=== PATIENT | female | born 1930 | race Caucasian/White ===

== ENCOUNTER 2020-03-15 21:56 | Emergency (ER) | payer MEDICARE, MEDICAID ==
[~2020-03-15] VITALS: Ht 144.8 cm; Wt 54.4 kg
--- NOTE | 2020-03-15 22:10 | NUR ---
ED Nurse Note: walked in to ed accompanied by family c/o cut on left arm that occured 1 wk ago and is suspected of being infected. reports 8/10 burning pain. vss, nad, aaox4, ambulatory, ermd at bedside.
[2020-03-15 22:13] VITALS: BP 194/83
[2020-03-15] MEDS ORDERED: Neosporin Oint Ud Pkt TOPIC ONE (22:15)
[2020-03-15] MEDS ORDERED: MUPIROCIN22 GM TOPIC (22:20)
--- NOTE | 2020-03-15 22:20 | Emergency Room Report ---
History of Present Illness General Chief Complaint: Upper Extremity Injury Source: Patient, Family Member Present Illness HPI This an 89-year-old female who is right-hand dominant. She has a history of high blood pressure. She presents with chief complaint of laceration to her left forearm. Injury occur a week ago. She bumped it against something. There was a big cut there. She did not come in to see the doctor. Now there is some swelling and pain in that area. Daughter said there is some clear yellowish drainage. No fever chills. Worse with palpation. Better with rest. Denies any other complaint. Her daughter set that her blood pressure go up when she is nervous especially when she goes to the doctor. She is compliant with her blood pressure medication. Denies any headache, chest pain, shortness of breath or any other complaint. Allergies: Coded Allergies: PENICILLINS (Verified Allergy, Unknown, 03/15/20) COVID-19 Screening Contact w/high risk pt: No Experienced COVID-19 symptoms?: No COVID-19 Testing performed CHILD MONITOR: No Patient History Past Medical History: see triage record, old chart reviewed, HTN Past Surgical History: none Pertinent Family History: none Social History: Denies: smoking Last Menstrual Period: NA Now: No : 1 Para: 1 Immunizations: other Reviewed Nursing Documentation: PMH: Agreed; PSxH: Agreed Nursing Documentation-PMH Hx Cardiac Problems: Yes - BIPASS Hx Hypertension: Yes Hx Asthma: Yes Review of Systems Eye: Denies: eye pain, blurred vision ENT: Denies: ear pain, nose congestion, throat swelling Respiratory: Denies: cough, shortness of breath Cardiovascular: Denies: chest pain, palpitations Gastrointestinal: Denies: abdominal pain, diarrhea, nausea, vomiting Musculoskeletal: Denies: back pain, joint pain Skin: Denies: rash Neurological: Denies: headache, numbness Endocrine: Denies: increased thirst, increased urine Hematologic/Lymphatic: Denies: easy bruising All Other Systems: negative except mentioned in HPI Physical Exam Vital Signs Date Time Temp Pulse Resp B/P (MAP) Pulse Ox O2 Delivery O2 Flow Rate FiO2 03/15/20 21:59 98.1 67 17 194/83 (120) 93 Room Air Vitals with high blood pressure Sp02 EP Interpretation: reviewed, normal General Appearance: well appearing, no apparent distress, alert Head: normocephalic, atraumatic Eyes: bilateral eye PERRL, bilateral eye EOMI ENT: hearing grossly normal, normal pharynx Neck: full range of motion, supple, no meningismus Respiratory: chest non-tender, lungs clear, normal breath sounds Cardiovascular #1: regular rate, rhythm, no murmur Gastrointestinal: normal bowel sounds, non tender, no mass, no organomegaly, no bruit, non-distended Musculoskeletal: back normal, normal range of motion, gait/station normal, other - Left forearm: There is a 2 cm laceration. It is old with granulation tissue. There is some mild edema. There is no purulent discharge. Slight redness at the edges. Psychiatric: mood/affect normal Medical Decision Making Diagnostic Impression: Primary Impression: Laceration of left forearm Qualified Codes: S51.812A - Laceration without foreign body of left forearm, initial encounter Additional Impressions: Cellulitis of forearm, left Hypertension Qualified Codes: I10 - Essential (primary) hypertension ER Course Patient with a left forearm laceration. There is already granulation tissue to the area. Is not well approximated because she did not come in for suture repair initially. I see no abscess. There may be some early cellulitis. I was going to put the patient on antibiotics but the daughter said that she has severe allergic reaction to 2 antibiotics. She does not know the name or class of antibiotics. This occurred in the . Daughter and patient does not want to be on antibiotics. Will treat with topical antibiotics instead. Patient blood pressure is elevated but no evidence of endorgan damage. Daughter does not want medication for this. She said this happened when she is at the doctor. Last Vital Signs Date Time Temp Pulse Resp B/P (MAP) Pulse Ox O2 Delivery O2 Flow Rate FiO2 03/15/20 21:59 98.1 67 17 194/83 (120) 93 Room Air Status: improved Disposition: HOME, SELF-CARE Condition: Stable Scripts Mupirocin* (MUPIROCIN*) 22 Gm Oint...g. 1 APPLIC TOPIC THREE TIMES A DAY, #22 GM Prov: Kenneth Ortiz MD 03/15/20 Additional Instructions: Keep wound clean. Clean first with hydrogen peroxide and apply antibiotic ointment. Follow-up with your doctor in 2 to 3 days for recheck. Ask your doctor what antibiotics you are allergic to. Return if symptoms worsen. Kenneth Ortiz MD Mar 15, 2020 22:20
[2020-03-15 22:25] VITALS: BP 194/83
--- NOTE | 2020-03-15 22:25 | NUR ---
ER DISCHARGE NOTE: Patient is cleared to be discharged per ERMD, pt is aox4, on room air, with stable vital signs. pt was given dc and prescription instructions, pt was able to verbalize understanding, pt id band removed without complications. pt is able to ambulate with steady gait. pt took all belongings.
== END 2020-03-15 22:30 | disposition home or self-care (01) ==
LOC: EMR 22:28
DX: S51.812A Laceration without foreign body of left forearm, initial encounter (principal); L03.114 Cellulitis of left upper limb; I10 Essential (primary) hypertension; Z88.0 Allergy status to penicillin; X58.XXXA Exposure to other specified factors, initial encounter; Y92.9 Unspecified place or not applicable
CPT/HCPCS: 99282